=== PATIENT | male | born 1970 | race Caucasian/White ===

== ENCOUNTER 2019-05-13 | Day surgery (SDC) | payer SELFPAY ==
[~2019-05-13] MED LIST: WELLBUTRIN XL300 MG PO
[2019-05-13] MEDS ORDERED: PRILOSEC20 MG/CAP PO (11:51)
--- NOTE | 2019-05-23 08:31 | NUR ---
05/21/18 - SPOKE WITH PATIENT REGARDING THE OMEPRAZOLE. PATIENT IS ON PRILOSEC 2 TIMES PER DAY. SPOKE WITH DR SPANN AND HE STATED TO STAY ON THE PRILOSEC AND DO NOT GO ON THE OMPRAZOLE. I EXPLAINED TO THE PATIENT THE SAME.
== END 2019-05-13 12:00 | disposition home or self-care (01) | DRG 387 ==
PROC: 0DBH8ZX Excision of Cecum, Via Natural or Artificial Opening Endoscopic, Diagnostic (ICD-10-PCS; principal; 2019-05-13)
PROC: 0DBB8ZX Excision of Ileum, Via Natural or Artificial Opening Endoscopic, Diagnostic (ICD-10-PCS; 2019-05-13)
PROC: 0DB48ZX Excision of Esophagogastric Junction, Via Natural or Artificial Opening Endoscopic, Diagnostic (ICD-10-PCS; 2019-05-13)
PROC: 0DB38ZX Excision of Lower Esophagus, Via Natural or Artificial Opening Endoscopic, Diagnostic (ICD-10-PCS; 2019-05-13)
DX: K50.111 Crohn's disease of large intestine with rectal bleeding (principal); K64.8 Other hemorrhoids; K22.70 Barrett's esophagus without dysplasia; K44.9 Diaphragmatic hernia without obstruction or gangrene; K21.0 Gastro-esophageal reflux disease with esophagitis